=== PATIENT | female | born 2005 | race Two or more races ===

== ENCOUNTER 2024-03-19 18:22 | Emergency (ER) | payer SELFPAY ==
[~2024-03-19] VITALS: Ht 162.6 cm; Wt 71.2 kg
[2024-03-19] MEDS: ACETAMINOPHEN 325 MG TAB PO ONE (18:49)
[2024-03-19 19:47] LABS: Urine Bacteria FEW /hpf (None Seen); Urine Blood 1+ /uL (Negative); Urine Clarity Turbid (Clear); Urine Color Yellow (Yellow); Urine Mucus FEW (None Seen); Urine Protein, UAD 1+ (Negative); Urine Specific Gravity 1.018 (1.001-1.035); Urine Urobilinogen Normal (Negative); Urine WBC 83 /hpf (0 - 5); Urine pH 5.5 (5.0-9.0)
[2024-03-19] MEDS ORDERED: NITR-87 PO (20:04)
[2024-03-19] MEDS ORDERED: IBUP-1455 PO (21:02)
[2024-03-19] MEDS: cefTRIAXone SOD 1,000 MG VL IM ONE (21:12)
[2024-03-19] MEDS: LIDOCAINE 1% HCL (LOCAL ANESTH.) INJ 20ML MDV ONE (21:16)
[2024-03-19 21:24] LABS: Basophils # (auto) 0 10 ^3/uL (0-0.2); Basophils % (auto) 0.2 % (0.0-2.0); Eosinophils # (auto) 0 10 ^3/uL (0-0.8); Eosinophils % (auto) 0.1 % (0.0-7.0); Hematocrit 42.8 % (36.0-46.0); Hemoglobin 14.2 g/dL (12.2-16.2); Lymphocytes # (auto) 1.1 10 ^3/uL (0.4-5.4); Lymphocytes % (auto) 9.6 % (10.0-50.0); Mean Corpuscular Hemoglobin 31.1 pg (28.0-32.0); Mean Corpuscular Hgb Conc. 33.1 g/dL (32.0-36.0); Mean Corpuscular Volume 93.8 fL (80.0-100.0); Monocytes # (auto) 0.9 10 ^3/uL (0-1.3); Monocytes % (auto) 7.6 % (0.0-12.0); Neutrophils # (auto) 9.5 10 ^3/uL (1.6-8.6); Neutrophils % (auto) 82.5 % (37.0-80.0); Nucleated Red Blood Cells % 0.1 %; Red Blood Cells 4.56 10^6/uL (4.0-5.20); Red Cell Distribution Width 12.8 % (11.8-14.3); White Blood Cell 11.5 10^3/uL (4.4-10.8)
[2024-03-19] MEDS: SODIUM CHLORIDE 0.9% 1,000 ML IV ONE (21:34)
[2024-03-19 21:44] LABS: Alanine Aminotransferase 29 U/L (7-40); Albumin 4.6 g/dL (3.2-4.8); Alkaline Phosphatase 80 U/L (46-116); Anion Gap 6 (5-15); Aspartate Aminotransferase 18 U/L (13-40); BUN/Creatinine Ratio 5.8 (10.0-20.0); Bilirubin, Total 0.8 mg/dL (0.2-1.0); Blood Urea Nitrogen 6 mg/dL (9-23); Calcium 9.8 mg/dL (8.5-10.1); Carbon Dioxide 25 mmol/L (20-30); Chloride 105 mmol/L (98-107); Glucose 119 mg/dL (74-106); Potassium 3.9 mmol/L (3.5-5.1); Sodium 136 mmol/L (136-145); Total Protein 7.5 g/dL (5.7-8.2)
[2024-03-19] MEDS: IBUPROFEN 800 MG TAB PO ONE (22:27)
[2024-03-19 22:36] VITALS: BP 130/71; PULSE 132; RESP 19; O2SAT 98
[2024-03-19 23:33] VITALS: TEMP 102.1
== END 2024-03-19 23:33 | disposition home or self-care (01) ==
LOC: ER 18:22
DX: N39.0 Urinary tract infection, site not specified (principal)
CPT/HCPCS: 36415; 80053; 81001; 83605; 85025; 96360; 96372; 99285; J0696; J2001; J7030

== ENCOUNTER → 2024-10-25 02:43 | Emergency (ER) | payer MEDICAID, OTHER ==
[~2024-10-25] VITALS: Ht 165.1 cm; Wt 76.0 kg
[~2024-10-25 02:43] MED LIST: IBUP-1455 PO; NITR-87 PO
--- NOTE | 2024-10-25 03:23 | ECG ---
[facility] Test Date: 2024-10-25 Test Time: 03:14:30 Pat Name: THERESE DE JESUS Department: ER Room: Gender: F Orientation And Mobility Specialist: JUAN : 2005 Requested By: DIVINA WILLINGHAM Order Number: [id number] Reading MD: Ruslan Raphael Measurements Intervals [place] Rate: 127 P: 0 [place]: 0 QRS: 78 QRSD: 82 T: -25 QT: 310 QTc: 451 Interpretive Statements Atrial flutter with predominant 2:1 AV block Nonspecific repol abnormality, diffuse leads Electronically Signed On 10-27-2024 13:05:51 PST by Ruslan Raphael Please click the below link to view image of tracing.
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
[2024-10-25] MEDS: SODIUM CHLORIDE 0.9% 1,000 ML IV ONE (03:35)
[2024-10-25 03:47] LABS: Basophils # (auto) 0 10 ^3/uL (0-0.2); Basophils % (auto) 0.4 % (0.0-2.0); Eosinophils # (auto) 0.2 10 ^3/uL (0-0.8); Eosinophils % (auto) 2.5 % (0.0-7.0); Hemoglobin 15.1 g/dL (12.2-16.2); Lymphocytes % (auto) 32.4 % (10.0-50.0); Mean Corpuscular Hemoglobin 31.5 pg (28.0-32.0); Mean Corpuscular Hgb Conc. 33.5 g/dL (32.0-36.0); Mean Corpuscular Volume 94.1 fL (80.0-100.0); Monocytes # (auto) 0.8 10 ^3/uL (0-1.3); Monocytes % (auto) 8.6 % (0.0-12.0); Neutrophils # (auto) 5.3 10 ^3/uL (1.6-8.6); Neutrophils % (auto) 56.1 % (37.0-80.0); Nucleated Red Blood Cells % 0.1 %; Platelet Count (auto) 273 10^3/uL (140-450); Red Blood Cells 4.79 10^6/uL (4.0-5.20); Red Cell Distribution Width 13.1 % (11.8-14.3); White Blood Cell 9.4 10^3/uL (4.4-10.8)
[2024-10-25 03:59] LABS: Sodium 138 mmol/L (136-145)
[2024-10-25 04:00] LABS: Anion Gap 10 (5-15); Carbon Dioxide 21 mmol/L (20-31)
[2024-10-25 04:02] LABS: INR 1.06 (0.9-1.15); Prothrombin Time 11.2 sec (9.3-11.8)
[2024-10-25 04:05] LABS: BUN/Creatinine Ratio 9.7 (10.0-20.0); Blood Urea Nitrogen 10 mg/dL (9-23)
[2024-10-25 04:41] VITALS: PULSE 106; RESP 20; O2SAT 99
[2024-10-25 04:43] LABS: Chloride 107 mmol/L (98-107); Creatine Kinase IFCC 245 U/L (34-145); Glucose 121 mg/dL (74-106)
[2024-10-25 05:33] VITALS: BP 135/83; PULSE 106; RESP 20; TEMP 98.6; O2SAT 99
== END | disposition short-term general hospital (02) ==
LOC: ER 02:43
DX: T20.27XA Burn of second degree of neck, initial encounter (principal); T75.4XXA Electrocution, initial encounter; Z79.899 Other long term (current) drug therapy; Z79.01 Long term (current) use of anticoagulants; W86.8XXA Exposure to other electric current, initial encounter; Y93.89 Activity, other specified; Y92.89 Other specified places as the place of occurrence of the external cause; Y99.8 Other external cause status
CPT/HCPCS: 36415; 80048; 82550; 85025; 85610; 93005; 96360; 96361; 99285; J7030